=== PATIENT | female | born 1960 | race Caucasian/White ===

== ENCOUNTER 2017-11-15 09:50 | Emergency (ER) | payer OTHER ==
[2017-11-15 10:08] VITALS: BP 98/53
--- NOTE | 2017-11-15 10:48 | UC ---
Ear Complaint HPI - HPI Summary HPI Summary: ONSET YESTERDAY MORNING OF LEFT EAR DISCOMFORT AND MUFFLED HEARING. NO DRAINAGE. NO FEVER OR URI SX. FEELS FATIGUED AND DRAINED. HAS BEEN DOING A LOT OF TRAVELING FOR WORK AND NOT SLEEPING WELL. - History of Current Complaint Chief Complaint: UCGeneralIllness Stated Complaint: L EAR PAIN Time Seen by Provider: 11/15/17 10:31 Hx Obtained From: Patient Onset/Duration: Gradual Onset, Lasting Days - 1 DAY, Still Present Severity Initially: Moderate Severity Currently: Moderate Pain Intensity: 5 Pain Scale Used: 0-10 Numeric Aggravating Factors: Nothing Alleviating Factors: Nothing Associated Signs/Symptoms: Positive: Hearing Loss. Negative: Discharge, URI Symptoms - Allergies/Home Medications Allergies/Adverse Reactions: Allergies Allergy/AdvReac Type Severity Reaction Status Date / Time No Known Allergies Allergy Verified 11/15/17 10:00 PMH/Surg Hx/FS Hx/Imm Hx Previously Healthy: Yes - Surgical History Surgical History: Yes Surgery Procedure, Year, and Place: myomectomy - uterine cyst 1998. melanoma removals - Family History Known Family History: Negative: Hypertension - Social History Alcohol Use: Daily Alcohol Amount: 1 drink/ day Substance Use Type: None Smoking Status (MU): Former Smoker Type: Cigarettes Amount Used/How Often: 2 cigs day Review of Systems Constitutional: Negative ENT: Ear Ache Respiratory: Negative Cardiovascular: Negative Gastrointestinal: Negative All Other Systems Reviewed And Are Negative: Yes Physical Exam Triage Information Reviewed: Yes Appearance: Well-Appearing, No Pain Distress, Well-Nourished Vital Signs: Initial Vital Signs Temp 98.4 F 11/15/17 10:01 Pulse 56 11/15/17 10:01 Resp 18 11/15/17 10:01 BP 98/53 11/15/17 10:01 Pulse Ox 98 11/15/17 10:01 Vital Signs Reviewed: Yes Eyes: Positive: Conjunctiva Clear ENT: Positive: Hearing grossly normal, Pharynx normal, TMs normal Neck: Positive: Supple, Nontender, No Lymphadenopathy Respiratory: Positive: No respiratory distress, No accessory muscle use Cardiovascular: Positive: Pulses Normal Abdomen Description: Positive: Soft Musculoskeletal: Positive: No Edema Neurological: Positive: Alert Psychological: Positive: Age Appropriate Behavior Skin: Negative: rashes Ear Complaint Course/Dx - Differential Dx/Diagnosis Provider Diagnoses: LEFT EAR PAIN Discharge - Sign-Out/Discharge Documenting (check all that apply): Patient Departure All imaging exams completed and their final reports reviewed: No Studies - Discharge Plan Condition: Stable Disposition: HOME Patient Education Materials: Earache (ED) Referrals: Idania Calvo, [Primary Care Provider] - If Needed Additional Instructions: NO SIGN OF INFECTION OR ANY EAR PATHOLOGY ON EXAM. TRY TAKING OTC DECONGESTANT SUCH SUDAFED. FOLLOW-UP WITH ENT IF YOUR SYMPTOMS ARE NOT IMPROVING. [facility] [place] [address] [facility] [phone] EAR PAIN, NON-SPECIFIC There are many causes of ear pain in adults. Pain that's felt in the ear can actually be coming from somewhere nearby. This is called "referred pain." Problems in the teeth, throat, or jaw joint (TMJ) often cause ear pain. Sometimes the physical exam or medical history suggests a treatable cause. If not, we may wait for the pain to go away. New symptoms may offer a clue to the cause of the pain. Report any changes to your care provider. These are some conditions that can cause ear pain, but may not be obvious from physical examination: Eardrum injury Pressure changes (barotrauma) due to swimming or shock waves Mild trauma such as Q-tip injury or finger-picking the outer ear Mild outer ear infection (swimmer's ear) Low-grade or chronic middle ear infection Mastoiditis (infection in the bone behind the ear) TMJ syndrome or arthritis of the jaw Pressure from hard earwax Tooth infection Infected tonsil Sinus infection Nerve disease such as Contreras's Palsy Follow your care provider's treatment recommendations. Let the ear rest. Don't insert cotton swabs, dig at the ear with your finger, or force your ears to "pop." If you're not improving after a few days, or if new symptoms arise, see the doctor. Watch for: Decreased hearing Spreading pain or headache Drainage or bleeding from the ear Fever Weakness of the face muscles Other new symptoms - Billing Disposition and Condition Condition: STABLE Disposition: Home
== END 2017-11-15 10:47 | disposition home or self-care (01) ==
LOC: UCEAST 09:50
DX: H92.02 Otalgia, left ear (principal); Z87.891 Personal history of nicotine dependence
CPT/HCPCS: 99211; G0463

== ENCOUNTER → 2018-10-25 05:31 | Day surgery (SDC) | payer BC ==
[~2018-10-25 05:31] MED LIST: Acetaminophen IV 1GM/100ML * 100 ML ONE; Buffered Lidocaine 1% SYRIN* 1 ML/SYRINGE INTRADERM ONE; Bupivacaine 0.25% EPI 200,000* 30 ML SDV ONE; Dexamethasone IV* 4 MG/ML 1 ML (4 MG) ONE; Dexmedetomidine* 200 MCG/2 ML 2 ML VIAL ONE; DiMENhydriNATE IV* 50 MG/ML VIAL IV PUSH PRN; EPHEDrine (Pressors)* 50 MG/ML VIAL ONE; Glycopyrrolate IV* 0.2 MG/ML 1 ML VIAL ONE; HYDROmorphone INJ1* 1 MG/ML SYRINGE ONE; Ketorolac INJ* 30 MG/ML 1 ML VIAL ONE; Lactated Ringers 1000 ML Bag* 1,000 ML IV SCH; Lidocaine 2% PF * 5 ML VIAL ONE; Metoclopramide IV* 5 MG/ML 2 ML VIAL ONE; Midazolam* 1 MG/ML 2 ML VIAL (2 MG) ONE; Naloxone* 0.4 MG/ML 1 ML VIAL IV PRN; Neostigmine Methylsulfate* 1 MG/ML 10 ML VIAL (1 mg/ml) ONE; Ondansetron INJ* 2 MG/ML VIAL ONE; Propofol* 10 MG/ML 20 ML BTL ONE; ROPIVACAINE 5 MG/ML 30 ML BTL (0.5%) ONE; Rocuronium* 10 MG/ML VIAL ONE; ceFAZolin 2 GM in NS PREMIX(*) 2 GM/100 ML BAG IVPB ONE; fentaNYL* 50 MCG/ML 2 ML VIAL (100 MCG VIAL) ONE; oxyCODONE TAB* 5 MG TAB ONE
[2018-10-25] MEDS: HYDROmorphone INJ1* 1 MG/ML SYRINGE IV PRN ×5 (10:23→11:20)
[2018-10-25] MEDS: oxyCODONE TAB* 5 MG TAB PO PRN ×2 (10:26→10:27)
[2018-10-25 12:18] VITALS: BP 135/63
--- NOTE | 2018-10-25 13:13 | OP ---
OPERATIVE REPORT: DATE OF OPERATION: 10/25/18 DATE OF : 64 SURGEON: Kalyan Love MD MANAGER OF INTERNATIONAL: SUKHWINDER Gerber An data assistant was needed for the entirety of the case to help with positioning, retraction, and was utilized throughout all portions of the case. ANESTHESIOLOGIST: Dr. Saini ANESTHESIA: General interscalene block. PRE-OP DIAGNOSIS: Left proximal humerus fracture. POST-OP DIAGNOSIS: Left proximal humerus fracture. OPERATIVE PROCEDURE: Left proximal humerus open reduction internal fixation. COMPLICATIONS: None. ESTIMATED LOSS: 50 mL. IMPLANTS: Synthes proximal humerus plate, short 4 hole plate with the appropriate length screws. 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 She had immediate pain, deformity. She was diagnosed with proximal humerus surgical neck fracture with some extension into the tuberosities. After extensive discussion of the risks and benefits of surgery versus nonoperative treatment, she has elected to proceed with surgical treatment. Risks included, but not limited to bleeding, infection, damage to nerves, surrounding structures, wound nonhealing, persistent pain, need for further surgery, scarring, stiffness, incomplete relief of symptoms, risk of anesthesia, risk of AVN, scarring, implant failure, hardware failure, bone nonhealing, malunion, nonunion and risk of DVT. She has elected to proceed. DESCRIPTION OF PROCEDURE: The patient was greeted in the preoperative area by attending surgeon. Correct extremity was marked and consent was confirmed. The patient was brought back to the operating suite. She was placed in the supine position on the operating table. She then underwent general anesthesia and endotracheal intubation after which the block was done while the patient was anesthetized. The patient was then positioned in the lazy beach chair position with her arm extended on the armboard. The left arm was prepped and draped in the usual sterile fashion using chlorhexidine soap scrub, and alcohol wipe, and a final prep with ChloraPrep. After appropriate surgical pause indicating side, site, procedure and administration of antibiotics. The deltopectoral incision was then made using 15- blade. Soft tissues were carefully dissected to expose the delta pectoral interval. The cephalic was actually taken medially. The subdeltoid adhesions were removed. The shoulder had obvious deformity. The abundant hematoma was then removed and the fracture site was visualized. There were bony fragment that were displaced. There was a large surgical neck fracture as well as continuation more proximally involving the tuberosity. Careful dissection was done to expose the biceps tendon and the biceps groove. This was used as a landmark for fixation for alignment. The fracture was then gently reduced using a freer elevator this helps to restore and realign the fracture. Once this was done, an incision was made to secure this proximally with K-wire and through a plate and then distally the shaft will be reduced to the plate. Care was taken to try to avoid varus deformity if possible. Again, there was fracture fragments that were present. The bone quality was great in the proximal humerus, but the shaft was quite good. Once the regional reduction was obtained the shaft screw was then used to secure the shaft of the plate and the proximal humerus were secured with multiple locking screws of the appropriate length. This was taken more distally. The greater tuberosity did have fracture that was apparent as well with some mild displacement. Distally, 2 nonlocking screws were placed and once the appropriate alignment was obtained , the x-rays obtained, demonstrated the acceptable reduction. Final images were obtained. The wound was copiously irrigated. Suture was placed through the supraspinatus tendon for reduction to the plate. The wounds were copiously irrigated. The delta pectoral interval was closed with 2-0 Ethibond in interrupted fashion. The skin was closed in layers with 3 Monocryl and running nylon. The wound was injected with 0.2% ropivicaine. Sterile dressings were applied. Her sling was replaced, the cryo/cuff was placed. She woke from anesthesia and transferred to PACU in stable condition. POSTOPERATIVE PLAN: She will be nonweightbearing for 6 weeks. She was discharged with pain medications. DVT prophylaxis was considered, but deferred due to I will see the patient back in 2 weeks with repeat x-rays. We will likely start therapy at 4 to 6 weeks depending on heal. [id number]/[facility] #: [id number] [facility]
== END | disposition home or self-care (01) ==
LOC: OR 05:31
PROVIDERS: ATTEND Orthopaedic Surgery
DX: S42.212A Unspecified displaced fracture of surgical neck of left humerus, initial encounter for closed fracture (principal); S42.252A Displaced fracture of greater tuberosity of left humerus, initial encounter for closed fracture; W01.0XXA Fall on same level from slipping, tripping and stumbling without subsequent striking against object, initial encounter; Y92.89 Other specified places as the place of occurrence of the external cause; F41.8 Other specified anxiety disorders; Z87.891 Personal history of nicotine dependence; G89.18 Other acute postprocedural pain
CPT/HCPCS: 76000; A9270-GY; C1713; C1776; J0690; J1100; J1170; J1885; J2250; J2405; J2704; J2710; J2765; J2795; J3010

== ENCOUNTER 2023-02-20 14:05 | Observation (INO) ==
[2023-02-20 14:25] LABS: ABS Basophils 0.1 10^3/uL (0.0-0.1); ABS Eosinophils 0.2 10^3/uL (0.0-0.5); ABS Lymphocytes 2.5 10^3/uL (1.0-4.8); ABS Monocytes 0.7 10^3/uL (0.0-0.9); ABS Neutrophils 4.1 10^3/uL (1.5-7.6); Eosinophil % 2.2 %; Hemoglobin 13.9 g/dL (11.5-14.3); Lymphocyte % 32.7 %; Mean Corpuscular Hemoglobin 28.3 pg (27-33); Mean Corpuscular Hgb Conc 33.1 g/dL (31-36); Mean Corpuscular Volume 85.5 fL (80-97); Mean Platelet Volume 7.6 fL (7.5-11.2); Nucleated Red Blood Cells % 0.1 %/100WBC (0.0-0.8); Platelet Count 287 10^3/uL (150-450); Red Blood Count 4.91 10^6/uL (3.63-4.92); Red Cell Distribution Width 13.7 % (12-17); White Blood Count 7.5 10^3/uL (3.8-11.8)
[2023-02-20] MEDS ORDERED: Iodixanol (CONTRAST) 320 MG/ML 100 ML SDV IV ONE (14:32)
[2023-02-20 14:37] LABS: Activated Partial Thrombo Time 29.2 seconds (26.0-38.0); INR 0.98 (0.83-1.13)
[2023-02-20 14:48] LABS: Albumin 4.4 g/dL (3.2-5.2); Albumin/Globulin Ratio 1.7 (1-3); Calcium 9.6 mg/dL (8.6-10.3); Creatinine, Serum 0.91 mg/dL (0.51-0.95); Globulin 2.6 g/dL (2-4); HDL Cholesterol 88.1 mg/dL; Indirect Bilirubin 0.4 mg/dL (0.3-1.0); Potassium 3.9 mmol/L (3.5-5.0); Total Bilirubin 0.4 mg/dL (0.2-1.0); eGFR CKD-EPI 71.8 (>60)
[2023-02-20] MEDS ORDERED: Metoclopramide 5 MG/ML VIAL (10 mg) IV SLOW PU ONE (16:05)
[2023-02-20] MEDS ORDERED: Enoxaparin 40 MG/0.4 ML SYR SUBCUT SCH (21:00)
[2023-02-21 06:47] LABS: ABS Basophils 0.1 10^3/uL (0.0-0.1); ABS Eosinophils 0.2 10^3/uL (0.0-0.5); ABS Lymphocytes 2.5 10^3/uL (1.0-4.8); ABS Monocytes 0.5 10^3/uL (0.0-0.9); ABS Neutrophils 2.9 10^3/uL (1.5-7.6); ABS Nucleated RBC 0.01 10^3/ul; Eosinophil % 3.4 %; Hematocrit 38.4 % (35-45); Hemoglobin 12.9 g/dL (11.5-14.3); Lymphocyte % 40.5 %; Mean Corpuscular Hemoglobin 28.4 pg (27-33); Mean Corpuscular Hgb Conc 33.6 g/dL (31-36); Mean Corpuscular Volume 84.6 fL (80-97); Mean Platelet Volume 7.7 fL (7.5-11.2); Nucleated Red Blood Cells % 0.1 %/100WBC (0.0-0.8); Platelet Count 232 10^3/uL (150-450); Red Blood Count 4.54 10^6/uL (3.63-4.92); Red Cell Distribution Width 13.4 % (12-17); White Blood Count 6.2 10^3/uL (3.8-11.8)
[2023-02-21 07:19] LABS: Calcium 8.6 mg/dL (8.6-10.3); Creatinine, Serum 0.93 mg/dL (0.51-0.95); Phosphorus 3.8 mg/dL (2.5-5.0); Potassium 3.7 mmol/L (3.5-5.0); eGFR CKD-EPI 69.9 (>60)
[2023-02-21] MEDS ORDERED: Gadoteridol (CONTRAST) 279.3 MG/ML 10 ML IV ONE (07:32)
[2023-02-21 12:56] VITALS: BP 109/61
[2023-02-21 17:50] LABS: Urine Appearance Cloudy; Urine Bilirubin Negative (Negative); Urine Blood Negative (Negative); Urine Color Yellow; Urine Glucose Negative (Negative); Urine Ketones Negative (Negative); Urine Nitrite Negative (Negative); Urine Protein Negative (Negative); Urine Specific Gravity 1.032 (1.002-1.030); Urine Urobilinogen Negative (Negative)
[2023-02-21 17:51] LABS: Urine Bacteria Absent (Absent); Urine Red Blood Cell Trace(0-2/hpf) (Absent); Urine Squamous Epithelial Cell Present (Absent); Urine White Blood Cell Trace(0-5/hpf) (Absent)
== END 2023-02-21 12:56 | disposition home or self-care (01) ==
LOC: EDHOLD 14:05 → ED 14:05 → SUATTDRO 16:29 → EDHOLD 02-21 12:55
PROVIDERS: ADMIT Hospitalist; ATTEND Internal Medicine